=== PATIENT | male | born 1970 | race Caucasian/White ===

== ENCOUNTER 2024-07-07 08:35 | Outpatient (CLI) | payer OTHER, SELFPAY | END 2024-07-07 08:36 | disposition home or self-care (01) | PROVIDERS: PCP Family Medicine; Visit Provider Family Medicine | DX: Z13.0 Encounter for screening for diseases of the blood and blood-forming organs and certain disorders involving the immune mechanism (principal); Z13.1 Encounter for screening for diabetes mellitus; Z13.6 Encounter for screening for cardiovascular disorders; Z12.5 Encounter for screening for malignant neoplasm of prostate | CPT/HCPCS: 80061; 82947; G0103 ==